=== PATIENT | male | born 1940 | race Caucasian/White ===

== ENCOUNTER 2022-09-10 06:08 | Day surgery (SDC) | payer MEDICARE, OTHER ==
[2022-09-08 11:55] LABS: BASOPHILS % (AUTO) 0.5 % (0-1); EOSINOPHILS % (AUTO) 0.5 % (0-6); LYMPHOCYTES # (AUTO) 1.2 X10'3 (1.1-4.8); LYMPHOCYTES % (AUTO) 17.5 % (21-51); MEAN CORPUSCULAR HEMOGLOBIN 32.1 PG (27.0-31.0); MEAN CORPUSCULAR HGB CONC 34.3 g/dL (33.0-36.5); MEAN CORPUSCULAR VOLUME 93.6 FL (78-98); MEAN PLATELET VOLUME 10.5 FL (7.4-10.4); MONOCYTES # (AUTO) 0.7 X10'3 (0-0.9); MONOCYTES % (AUTO) 11.1 % (2-12); NEUTROPHILS # (AUTO) 4.7 X10'3 (1.8-7.7); NEUTROPHILS % (AUTO) 70.4 % (42-75); PRE OP HEMATOCRIT 44.8 % (42.0-52.0); PRE OP HEMOGLOBIN 15.4 g/dL (14.0-17.9); PRE OP PLATELET COUNT 227 X10'3 (140-440); RED BLOOD COUNT 4.79 X10'6 (4.70-6.10); RED CELL DISTRIBUTION WIDTH 13.6 % (11.5-14.5)
[2022-09-08 12:08] LABS: CLARITY,URINE CLEAR (Clear); COLOR,URINE YELLOW (Yellow); GLUCOSE, URINE NEGATIVE (Neg); KETONES,URINE NEGATIVE (Neg); LEUKOCYTE ESTERASE ,URINE NEGATIVE (Neg); NITRITES, URINE NEGATIVE (Neg); OCCULT BLOOD,URINE TRACE-INTACT (Neg); PROTEIN,URINE NEGATIVE (Neg); UROBILINOGEN,URINE 0.2 E.U/dL (0.2-1.0)
[2022-09-08 12:12] LABS: UA COLLECTION TYPE CLN CATCH MIDSTREAM
[2022-09-08 12:15] LABS: BACTERIA,URINE NONE SEEN /HPF (Neg); MUCUS STRANDS NONE SEEN /LPF (Neg); RBC,URINE NONE SEEN /HPF (0-2); SQUAMOUS EPITHELIAL CELL,UR FEW /LPF (FEW); WBC,URINE NONE SEEN /HPF (0-4)
[2022-09-08 12:16] LABS: ALBUMIN 4.1 G/DL (3.4-5.0); ALBUMIN/GLOBULIN RATIO 1.3 (1.1-1.5); ALKALINE PHOSPHATASE 79 IU/L (46-116); BLOOD UREA NITROGEN 14 MG/DL (7-18); BUN/CREATININE RATIO 12.5 (5.4-32.0); CALCIUM 9.1 MG/DL (8.5-10.1); CREATININE 1.12 MG/DL (0.60-1.10); PRE OP ALT 15 U/L (30-65); PRE OP AST 16 U/L (10-37); PRE OP BILIRUB, TOTAL 0.8 MG/DL (0.0-1.0); PRE OP GLUCOSE 114 MG/DL (70-104); TOTAL CARBON DIOXIDE 31.2 MMOL/L (24-32); TOTAL PROTEIN 7.2 G/DL (6.4-8.2); eGFR 63 ML/MIN
[2022-09-08 13:28] LABS: CHLORIDE 104 MMOL/L (99-107)
[2022-09-08 14:02] LABS: PRE OP ANION GAP 6 (8-16); PRE OP POTASSIUM 3.4 MMOL/L (3.4-5.1); PRE OP SODIUM 141 MMOL/L (135-145)
[~2022-09-10] VITALS: Ht 175.3 cm; Wt 78.0 kg
[2022-09-10] VITALS (16 sets, daily range): BP systolic 145–193; BP diastolic 75–101
[~2022-09-10 06:08] MED LIST: ASCO-157 PO; CYAN-34 PO; GRAPE SEED EXTRACT PO; VALS1TAB4 PO; VITAMIN D3 PO; [UNRECOGNIZED DRUG - OTHER] PO; [UNRECOGNIZED DRUG - OTHER] PO; ceFAZolin inj. 2,000 MG in dextrose 5%-water 100 ML IV ONE; famotidine 20mg tablet PO ONE; ringers solution, lacted 1,000 ML IV SCH
[2022-09-10] MEDS ORDERED: BUPIVAcaine 0.5% inj/PF 30 ML ONE (06:51)
[2022-09-10] MEDS ORDERED: ondansetron/PF 4mg/2ml inj ONE (07:47)
[2022-09-10] MEDS ORDERED: sevoflurane 250ml liquid IH ONE (07:47)
[2022-09-10] MEDS ORDERED: midazolam 1 mg/ML 2ml injection ONE (07:55)
[2022-09-10] MEDS ORDERED: fentaNYL/PF 50MCG/1 ML 2ML syringe ONE (07:55)
[2022-09-10] MEDS ORDERED: propofol inj 20 ML IV ONE (08:01)
[2022-09-10] MEDS ORDERED: LIDOcaine 2% (20mg/ml) 5ml vial ONE (08:02)
[2022-09-10] MEDS ORDERED: rocuronium 10mg/ml inj IV ONE (08:02)
[2022-09-10] MEDS ORDERED: dexamethasone sod phosphate 4mg/ml inj. ONE (08:02)
[2022-09-10] MEDS ORDERED: glycopyrrolate 0.2mg/ml inj ONE (08:02)
[2022-09-10] MEDS ORDERED: neostigmine methylsulfate 1 MG/ML 10ml vial ONE (08:02)
[2022-09-10] MEDS ORDERED: BUPIVAcaine 0.5% inj/PF 30 ml vial IJ ONE (08:16)
[2022-09-10] MEDS ORDERED: ringers solution, lacted 1,000 ML IV SCH (08:20)
[2022-09-10] MEDS ORDERED: ondansetron/PF 4mg/2ml inj IV PRN (08:20)
[2022-09-10] MEDS ORDERED: fentaNYL/PF 50MCG/1 ML 2ML syringe IV PRN ×2 (08:20)
[2022-09-10] MEDS ORDERED: enalaprilat dihydrate 2.5mg/2ml vial IV PRN (08:20)
[2022-09-10] MEDS ORDERED: morphine 4 MG/ML inj SYRINge IV PRN (08:20)
[2022-09-10] MEDS ORDERED: morphine 2 MG/ML inj. syringe IV PRN (08:20)
[2022-09-10] MEDS ORDERED: ePHEDrine 50MG/ML INJ. ONE (08:21)
--- NOTE | 2022-09-10 09:27 | NUR ---
Received from OR via [facility] , accompanied by Anesthesiologist DR SAVAGE and report given by Anesthesiolgist. PT PRESENTS WITH PIV 20G RIGHT WRIST, ABD DRESSING KANIKA RIVERO. Addendum: 09/10/22 at 0939 by Gabbie Saenz RN, RN Amended: Links added.
[2022-09-10] MEDS: hydrALAZINE 20mg/ml inj. IV PRN ×2 (10:44→11:25)
[2022-09-10] MEDS ORDERED: traMADol 50MG tablet PO ONE (10:55)
--- NOTE | 2022-09-10 11:40 | NUR ---
PT TO [facility] ROOM [facility]. REPORT GIVEN TO TAYLOR MORENO. Addendum: 09/10/22 at 1153 by Gabibe Saenz RN, RN Amended: Links added.
== END 2022-09-10 12:57 | disposition home or self-care (01) ==
LOC: PAS 06:08
PROVIDERS: ATTEND Surgery
DX: K40.90 Unilateral inguinal hernia, without obstruction or gangrene, not specified as recurrent (principal); E11.9 Type 2 diabetes mellitus without complications; M19.90 Unspecified osteoarthritis, unspecified site; I10 Essential (primary) hypertension; Z85.46 Personal history of malignant neoplasm of prostate; Z86.16 Personal history of COVID-19; Z98.890 Other specified postprocedural states; Z79.899 Other long term (current) drug therapy
CPT/HCPCS: 36415; 49650; 80053; 81001; 82948; 85025; 93005; C1758; C1781; J0360; J0690; J1100; J2250; J2270; J2704; J2710; J3010; J3490; J7030; J7060; J7120; S0020; Z7506; Z7508; Z7512; A4215; A4615; A4618; J2405

== ENCOUNTER 2022-09-12 14:42 | Emergency (ER) | payer MEDICARE, OTHER ==
[~2022-09-12] VITALS: Ht 175.3 cm; Wt 78.2 kg
[~2022-09-12 14:42] MED LIST changes: -ceFAZolin inj. 2,000 MG in dextrose 5%-water 100 ML IV ONE; -famotidine 20mg tablet PO ONE; -ringers solution, lacted 1,000 ML IV SCH
[2022-09-12] MEDS ORDERED: LIDOcaine 2% 10ml TOPICAL JELLY (Urojet) MM ONE (16:30)
[2022-09-12 16:31] LABS: CLARITY,URINE CLEAR (Clear); COLOR,URINE YELLOW (Yellow); GLUCOSE, URINE NEGATIVE (Neg); KETONES,URINE NEGATIVE (Neg); LEUKOCYTE ESTERASE ,URINE NEGATIVE (Neg); NITRITES, URINE NEGATIVE (Neg); OCCULT BLOOD,URINE TRACE-INTACT (Neg); PH,URINE 5.5 (4.8-8.0); PROTEIN,URINE NEGATIVE (Neg); UA COLLECTION TYPE CLN CATCH MIDSTREAM; UROBILINOGEN,URINE 0.2 E.U/dL (0.2-1.0)
[2022-09-12 16:40] LABS: SQUAMOUS EPITHELIAL CELL,UR FEW /LPF (FEW)
[2022-09-12 16:41] LABS: BACTERIA,URINE FEW /HPF (Neg); RBC,URINE 0-2 /HPF (0-2); WBC,URINE 0-4 /HPF (0-4)
[2022-09-12 17:24] VITALS: BP 178/97
== END 2022-09-12 17:32 | disposition home or self-care (01) ==
LOC: ER 14:43
DX: R33.9 Retention of urine, unspecified (principal); I10 Essential (primary) hypertension; Z87.891 Personal history of nicotine dependence
CPT/HCPCS: 51702; 81001; 99284; A4358

== ENCOUNTER 2022-09-14 07:30 | Emergency (ER) | payer MEDICARE, OTHER ==
[~2022-09-14] VITALS: Ht 175.3 cm; Wt 78.0 kg
[2022-09-14 07:35] VITALS: BP 149/82
== END 2022-09-14 09:41 | disposition home or self-care (01) ==
LOC: ER 07:31
DX: R39.198 Other difficulties with micturition (principal); I10 Essential (primary) hypertension; Z85.9 Personal history of malignant neoplasm, unspecified; Z98.890 Other specified postprocedural states; Z72.89 Other problems related to lifestyle; Z79.899 Other long term (current) drug therapy
CPT/HCPCS: 99281